=== PATIENT | female | born 1995 | race Hispanic/Latino ===

== ENCOUNTER 2017-11-27 05:23 | Inpatient (IN) | payer MEDICAID ==
[~2017-11-27] VITALS: Ht 157.5 cm; Wt 76.7 kg
[2017-11-27] MEDS ORDERED: LACTATED RINGERS 1000ML IV ONE (05:30)
[2017-11-27 06:15] VITALS: BP 135/90
[2017-11-27] MEDS ORDERED: LACTATED RINGERS 1000ML 1,000 ML IV PRN (06:19)
[2017-11-27] MEDS: OXYTOCIN-LR 20 UNITS/1000 ML 1,000 ML IV SCH ×2 (06:30→21:51)
[2017-11-27 06:45] LABS: APPEARANCE,URINE CLOUDY (CLEAR); BILIRUBIN,URINE NEGATIVE (NEGATIVE); COLOR,URINE YELLOW (YELLOW); GLUCOSE, URINE (UA) NEGATIVE (NEGATIVE); KETONES,URINE 5 mg/dL (NEGATIVE); LEUKOCYTE ESTERASE ,URINE LARGE (NEGATIVE); NITRATE,URINE NEGATIVE (NEGATIVE); OCCULT BLOOD,URINE TRACE-INTACT (NEGATIVE); PROTEIN,URINE NEGATIVE (NEGATIVE); UROBILINOGEN,URINE 0.2 mg/dL (0.2-1.0)
[2017-11-27] MEDS ORDERED: LACTATED RINGERS 1000ML 1,000 ML IV ONE (06:56)
[2017-11-27] MEDS ORDERED: OXYTOCIN 10 USP UNITS/ML ONE ×2 (06:56→13:40)
[2017-11-27 06:57] LABS: HEMATOCRIT 33.5 % (36-48); MEAN CORPUSCULAR HEMOGLOBIN 27.4 pg (27.0-33.0); MEAN CORPUSCULAR HGB CONC 33.1 g/dL (32.0-36.0); MEAN CORPUSCULAR VOLUME 82.9 fL (79-99); NUCLEATED RED BLOOD CELLS 0.1 % (0.0-0.19); PLATELET COUNT (AUTO) 277 K/uL (130-400); RED BLOOD CELL COUNT(AUTO) 4.05 MIL/uL (4.00-5.50); RED CELL DISTRIBUTION WIDTH 17.3 % (11.0-15.5); WHITE BLOOD COUNT (AUTO) 15.4 K/uL (4.8-10.8)
[2017-11-27] MEDS ORDERED: BUTORPHANOL TARTRATE 2 MG/ML IVP ONE (07:00)
[2017-11-27] MEDS ORDERED: OXYTOCIN 10 USP UNITS/ML 20 UNIT in LACTATED RINGERS 1000ML 1,000 ML IV SCH (07:00)
[2017-11-27 07:06] LABS: BACTERIA,URINE Few /HPF (None Seen); MUCUS,URINE Rare LPF (None Seen); RBC,URINE 0-1 /HPF (0-1); SQUAMOUS EPITHELIAL CELL,UR Few /LPF (0-2); WBC,URINE 51-100 /HPF (0-1)
[2017-11-27] MEDS ORDERED: EPHEDRINE SULFATE 50 MG/ML AMPULE IVP PRN (07:30)
[2017-11-27] MEDS ORDERED: NALOXONE HCL 0.4 MG/1 ML ML IV PRN (07:30)
[2017-11-27] MEDS ORDERED: LACTATED RINGERS 500 ML 500 ML IV PRN (07:30)
[2017-11-27 08:51] LABS: RAPID PLASMA REAGIN NONREACTIVE (NONREACTIVE)
[2017-11-27] MEDS ORDERED: LIDOCAINE HCL 1% 20 ML VIAL ONE (11:15)
[2017-11-27] MEDS ORDERED: WITCH HAZEL 1 PAD TP PRN (12:00)
[2017-11-27] MEDS ORDERED: MEASLES/MUMPS/RUBELLA VACCINE, LIVE 0.5 ML/VIAL SQ PRN (12:00)
[2017-11-27] MEDS ORDERED: LANOLIN 30GM OINTMENT TP PRN (12:00)
[2017-11-27] MEDS ORDERED: BENZOCAINE/LANOLIN/ALOE VERA 60 ML AEROSOL TP PRN (12:00)
[2017-11-27] MEDS ORDERED: ACETAMINOPHEN 325 MG TAB PO PRN (12:00)
[2017-11-27] MEDS ORDERED: DIPH,PERTUSS(ACELL),TET VAC/PF 0.5 ML VIAL IM PRN (12:00)
[2017-11-27] MEDS: IBUPROFEN 600 MG TABLET PO PRN ×2 (14:17→20:19)
[2017-11-27 15:20] VITALS: BP 120/56
[2017-11-27] MEDS ORDERED: PREN-154 PO (15:42)
[2017-11-27 19:30] VITALS: BP 120/72
[2017-11-27] MEDS: DOCUSATE SODIUM 100 MG CAP PO SCH (20:19)
[2017-11-27 23:58] VITALS: BP 109/61
[2017-11-28 03:50] VITALS: BP 106/61
[2017-11-28] MEDS: IBUPROFEN 600 MG TABLET PO PRN ×2 (03:50→11:56)
[2017-11-28 06:48] LABS: HEMATOCRIT 27.3 % (36-48); MEAN CORPUSCULAR HEMOGLOBIN 26.7 pg (27.0-33.0); MEAN CORPUSCULAR HGB CONC 32.5 g/dL (32.0-36.0); MEAN CORPUSCULAR VOLUME 82.1 fL (79-99); NUCLEATED RED BLOOD CELLS 0.1 % (0.0-0.19); PLATELET COUNT (AUTO) 228 K/uL (130-400); RED BLOOD CELL COUNT(AUTO) 3.33 MIL/uL (4.00-5.50); RED CELL DISTRIBUTION WIDTH 17.5 % (11.0-15.5); WHITE BLOOD COUNT (AUTO) 13.4 K/uL (4.8-10.8)
[2017-11-28 07:34] VITALS: BP 101/61
[2017-11-28 08:18] LABS: HEPATITIS Bs ANTIGEN SCREEN P Negative (Negative)
[2017-11-28] MEDS ORDERED: FLU VACC QS2017-18 36MOS UP/PF 60 MCG/0.5 ML ML IM SCH (08:45)
[2017-11-28] MEDS: DOCUSATE SODIUM 100 MG CAP PO SCH (09:40)
[2017-11-28 11:34] VITALS: BP 104/68
== END 2017-11-28 14:35 | disposition home or self-care (01) | DRG 560 ==
LOC: EDH 05:23 → OBSVTOIN 05:24 → LDH 05:24 → WSH 15:07
PROVIDERS: ADMIT Obstetrics & Gynecology; ATTEND Obstetrics & Gynecology
PROC: 0KQM0ZZ Repair Perineum Muscle, Open Approach (ICD-10-PCS; principal; 2017-11-27)
PROC: 10E0XZZ Delivery of Products of Conception, External Approach (ICD-10-PCS; 2017-11-27)
PROC: 3E0234Z Introduction of Serum, Toxoid and Vaccine into Muscle, Percutaneous Approach (ICD-10-PCS; 2017-11-27)
PROC: 3E0234Z Introduction of Serum, Toxoid and Vaccine into Muscle, Percutaneous Approach (ICD-10-PCS; 2017-11-27)
DX: O70.1 Second degree perineal laceration during delivery (principal); Z23 Encounter for immunization; Z37.0 Single live birth; Z3A.42 42 weeks gestation of pregnancy
CPT/HCPCS: 36415; 81001; 82120; 85027; 86592; 86701; 86850; 86900; 86901; 87340; 87390; 90715; A4314; A4606; J0595; J2590; J7120; Q2038

== ENCOUNTER 2020-05-26 03:50 | Inpatient (IN) | payer MEDICAID ==
[~2020-05-26] VITALS: Ht 157.5 cm; Wt 77.6 kg
[2020-05-26] MEDS ORDERED: NALOXONE HCL 0.4 MG/1 ML ML IV PRN (05:00)
[2020-05-26] MEDS ORDERED: ROPIVACAINE 0.2% 100ML VIAL 100 ML EP SCH (05:00)
[2020-05-26] MEDS ORDERED: EPHEDRINE SULFATE 50 MG/ML AMPULE IVP PRN (05:00)
[2020-05-26] MEDS ORDERED: LACTATED RINGERS 500 ML 500 ML IV PRN (05:00)
[2020-05-26] MEDS: LACTATED RINGERS 1000ML 1,000 ML IV PRN ×3 (05:14→06:05)
[2020-05-26] MEDS ORDERED: FENTANYL CITRATE PF 50 MCG/1 ML 2ML VIAL ONE (05:33)
[2020-05-26 06:06] VITALS: BP 137/75
[2020-05-26] MEDS: OXYTOCIN-LR 20 UNITS/1000 ML 1,000 ML IV SCH ×2 (07:49→09:00)
[2020-05-26] MEDS ORDERED: OXYTOCIN-LR 20 UNITS/1000 ML 1,000 ML IV SCH (09:15)
[2020-05-26] MEDS ORDERED: ACETAMINOPHEN 325 MG TAB PO PRN (09:15)
[2020-05-26] MEDS ORDERED: ACETAMINOPHEN-CODEINE 300/30MG TAB PO PRN (09:15)
[2020-05-26] MEDS ORDERED: MEASLES/MUMPS/RUBELLA VACCINE, LIVE 0.5 ML/VIAL SQ PRN (09:15)
[2020-05-26] MEDS ORDERED: LANOLIN 30GM OINTMENT TP PRN (09:15)
[2020-05-26] MEDS ORDERED: BENZOCAINE/LANOLIN/ALOE VERA 60 ML AEROSOL TP PRN (09:15)
[2020-05-26] MEDS ORDERED: WITCH HAZEL 1 PAD TP PRN (09:15)
[2020-05-26] MEDS ORDERED: DIPH,PERTUSS(ACELL),TET VAC/PF 0.5 ML VIAL IM PRN (09:15)
[2020-05-26 10:48] VITALS: BP 105/54; PULSE 77; RESP 18; TEMP 98.3
[2020-05-26] MEDS: IBUPROFEN 600 MG TABLET PO PRN (11:18)
[2020-05-26 16:59] VITALS: BP 106/68; PULSE 78; RESP 18; TEMP 98.3
[2020-05-26 19:41] VITALS: BP 98/50; PULSE 88; RESP 20; TEMP 98.1
[2020-05-26] MEDS: DOCUSATE SODIUM 100 MG CAP PO SCH (20:27)
[2020-05-26 23:08] VITALS: BP 112/73; PULSE 92; RESP 20; TEMP 98.5
[2020-05-27 03:19] VITALS: BP 121/67; PULSE 86; RESP 20; TEMP 98.6
--- NOTE | 2020-05-27 03:30 | NUR ---
DR. LOPEZ HERE TO SEE PT, SAID PT CAN GO HOME IN THE MORNING. PT. DENIED PAIN AND DISCOMFORT.
[2020-05-27 07:33] VITALS: BP 125/82; PULSE 72; RESP 18; TEMP 98
[2020-05-27] MEDS: DOCUSATE SODIUM 100 MG CAP PO SCH (08:26)
[2020-05-27] MEDS: IBUPROFEN 600 MG TABLET PO PRN (08:27)
[2020-05-27 11:31] VITALS: BP 135/84; PULSE 101; RESP 20; TEMP 97.9
--- NOTE | 2020-05-27 12:15 | NUR ---
DISCHARGE PT LEFT UNIT VIA WHEELCHAIR, WITH BABY IN ARMS, ACCOMPANIED BY SIGNIFICANT OTHER. DENIED PAIN AND HAD NO COMPLAINTS. BABY STRAPPED IN CAR SEAT. PT AND BABY TRANSPORTED BY PERSONAL VEHICLE.
== END 2020-05-27 12:15 | disposition home or self-care (01) | DRG 560 ==
LOC: EDH 03:50 → OBSVTOIN 03:51 → LDH 03:51 → WSH 10:45
PROVIDERS: ADMIT Obstetrics & Gynecology; ATTEND Obstetrics & Gynecology
PROC: 10E0XZZ Delivery of Products of Conception, External Approach (ICD-10-PCS; principal; 2020-05-26)
PROC: 0HQ9XZZ Repair Perineum Skin, External Approach (ICD-10-PCS; 2020-05-26)
PROC: 10907ZC Drainage of Amniotic Fluid, Therapeutic from Products of Conception, Via Natural or Artificial Opening (ICD-10-PCS; 2020-05-26)
PROC: 3E0R3BZ Introduction of Anesthetic Agent into Spinal Canal, Percutaneous Approach (ICD-10-PCS; 2020-05-26)
PROC: 00HU33Z Insertion of Infusion Device into Spinal Canal, Percutaneous Approach (ICD-10-PCS; 2020-05-26)
PROC: 3E0134Z Introduction of Serum, Toxoid and Vaccine into Subcutaneous Tissue, Percutaneous Approach (ICD-10-PCS; 2020-05-26)
PROC: 3E0234Z Introduction of Serum, Toxoid and Vaccine into Muscle, Percutaneous Approach (ICD-10-PCS; 2020-05-26)
DX: O70.0 First degree perineal laceration during delivery (principal); Z37.0 Single live birth; Z23 Encounter for immunization; Z3A.40 40 weeks gestation of pregnancy